=== PATIENT | female | born 1965 | race Caucasian/White ===

== ENCOUNTER 2017-04-25 09:40 | Outpatient (CLI) | payer BC ==
--- NOTE | 2017-04-25 13:26 | RAD ---
LEFT FOOT THREE VIEWS: HISTORY: Calcaneal pain. COMPARISON: None. FINDINGS: No fracture. No cortical irregularity. No periosteal reaction. Joint space is preserved. IMPRESSION: Unremarkable three views left foot. POS: [facility]
== END 2017-04-25 09:41 | disposition home or self-care (01) ==
LOC: SCSRAD 09:40
PROVIDERS: ATTEND Nurse Practitioner Family
DX: M79.672 Pain in left foot (principal)

== ENCOUNTER 2017-11-08 08:28 | Outpatient (CLI) | payer BC, OTHER ==
[2017-11-08] MEDS ORDERED: ISOVUE-370 76%-LOCM 1 ML ONE (11:00)
== END 2017-11-08 08:29 | disposition home or self-care (01) ==
LOC: BICCT 08:28
PROVIDERS: ATTEND Obstetrics & Gynecology Gynecologic Oncology
DX: C56.1 Malignant neoplasm of right ovary (principal)
CPT/HCPCS: 71046; 74177

== ENCOUNTER 2018-01-19 05:56 | Day surgery (SDC) | payer BC ==
[2018-01-18 08:41] VITALS: BMI 32.1
[2018-01-19] MEDS ORDERED: Fentanyl 100 MCG/2 ML VIAL ONE (06:46)
[2018-01-19] MEDS ORDERED: Ketorolac Tromethamine 30 MG/ML VIAL ONE ×2 (07:05→09:35)
[2018-01-19] MEDS ORDERED: CEFAZOLIN/Water 2 GM/20 ML SYRINGE ONE (07:05)
[2018-01-19 07:10] LABS: Anion Gap 14 mmol/L (10-20); BUN (Urea Nitrogen) 15 mg/dL (9.8-20.1); Band 6 % (5-11); Calc. Creatinine Clearance 121 mL/min (70-130); Calcium 9.5 mg/dL (7.8-10.44); Carbon Dioxide 24 mmol/L (22-29); Chloride 107 mmol/L (98-107); Eosinophils 2 % (0-10); Estimated GFR-MDRD Greater than 90; Glucose 101 mg/dL (70-105); Hemoglobin 13.3 g/dL (12.0-16.0); Lymphocytes 21 % (21-51); MDiff Complete? YES; Mean Corpuscular HGB CONC 35.2 g/dL (32.0-36.0); Mean Corpuscular Hemoglobin 31.1 pg (27.0-31.0); Mean Corpuscular Volume 88.3 fL (78.0-98.0); Mean Platelet Volume 7.3 fL (7.4-10.4); Monocytes 7 % (0-10); Neutrophil 61 % (42-75); Platelet Count 303 thou/uL (130-400); Potassium 3.9 mmol/L (3.5-5.1); RBC Distribution Width 11.8 % (11.5-14.5); RBC Morphology Normal; Reactive Lymphocytes 3 % (0-10); Red Blood Cell (RBC) Count 4.29 mill/uL (4.20-5.40); Sodium 141 mmol/L (136-145); White Blood Cell (WBC) Count 4.5 thou/uL (4.8-10.8)
[2018-01-19] MEDS ORDERED: Midazolam HCl 2 mg/2 ml Vial ONE (07:19)
[2018-01-19] MEDS ORDERED: Bupivacaine/Epinephrine 0.25% 30 ML VIAL ONE (07:42)
[2018-01-19] MEDS ORDERED: traMADol HCl 50 MG TAB ONE (09:36)
[2018-01-19] MEDS ORDERED: PROPOFOL 200 MG/20 ML VIAL ONE (14:33)
[2018-01-19] MEDS ORDERED: Lidocaine 1% PF 5 ML VIAL ONE (14:33)
[2018-01-19] MEDS ORDERED: Dexamethasone 20 MG/5 ML VIAL ONE (14:33)
[2018-01-19] MEDS ORDERED: diphenhydrAMINE 50 MG/ML VIAL ONE (14:33)
[2018-01-19] MEDS ORDERED: Ondansetron HCl/PF 4 MG/2 ML Vial ONE (14:33)
--- NOTE | 2018-01-20 09:53 | OP ---
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 OPERATION PERFORMED: Excision of a 7 cm right axillary mass. SURGEON: Berto Galeana M.D. ANESTHESIA: General with laryngeal mask airway. INDICATIONS: The patient is a 52-year-old white female. She had undergone prior right breast reduct ion. She has a large visible mass within the right axilla. This is distinctly different from the le ft axilla. I had been observing this for several years. Unfortunately, it has enlarged and become p rogressively symptomatic. She is taken to the operating room at this time for excision of this area. DESCRIPTION OF OPERATION: Informed consent was obtained. The patient was taken to the operating rain m where general endotracheal anesthesia obtained with the patient in supine position. The right axil la and breast were prepped with ChloraPrep and draped in sterile fashion. Local anesthetic was infil trated using 0.25% Marcaine with epinephrine. An elliptical incision was created directly over the m ass. This had been marked preoperatively. Dissection was carried through skin and subcutaneous tiss ue. The glandular tissue that comprised the mass was dissected circumferentially and removed intact in continuity with the overlying skin. This was passed off the field and submitted to specimen. Gre at care was taken to avoid dissection to deep within the axilla so as to avoid all lymphatics, lymph nodes, nerves and vessels. The area was irrigated and meticulous hemostasis obtained with electrocautery. Wound was then closed in layers using 3-0 Vicryl to approximate the deep layers and a running subcuticular suture of 4-0 M onocryl to approximate skin edges. Dermabond was then placed externally. There were no complication s. The patient tolerated the procedure well and was taken to recovery room in stable condition.
== END 2018-01-19 09:50 | disposition home or self-care (01) ==
LOC: SDC 05:56
PROVIDERS: ATTEND Specialist
PROC: 0JB60ZZ Excision of Chest Subcutaneous Tissue and Fascia, Open Approach (ICD-10-PCS; principal; 2018-01-19)
DX: Q83.8 Other congenital malformations of breast (principal); N60.21 Fibroadenosis of right breast; F32.9 Major depressive disorder, single episode, unspecified; F41.9 Anxiety disorder, unspecified; Z79.899 Other long term (current) drug therapy; Z88.0 Allergy status to penicillin
CPT/HCPCS: 36415; 80048; 85025; 88305; J0131; J1100; J1200; J1885; J2001; J2250; J2405; J2704; J3010

== ENCOUNTER 2018-05-18 10:45 | Outpatient (CLI) | payer BC | END 2018-05-18 10:46 | disposition home or self-care (01) | LOC: BICMAMMO 10:45 | PROVIDERS: ATTEND Student in an Organized Health Care Education/Training Program | DX: Z12.31 Encounter for screening mammogram for malignant neoplasm of breast (principal); Z80.3 Family history of malignant neoplasm of breast; Z85.41 Personal history of malignant neoplasm of cervix uteri | CPT/HCPCS: 77063; 77067 ==

== ENCOUNTER 2018-12-22 08:26 | Outpatient (CLI) | payer BC ==
--- NOTE | 2018-12-22 08:54 | RAD ---
CHEST 2 VIEWS: HISTORY: Malignant neoplasm of right ovary. COMPARISON: 11/08/2017. FINDINGS: Normal cardiac silhouette. The pulmonary vessels and hilum are normal. Costophrenic angles are carla r. No masses or consolidation. No pneumothorax or osseous abnormalities. IMPRESSION: No acute cardiopulmonary process. POS: [facility]
== END 2018-12-22 08:27 | disposition home or self-care (01) ==
LOC: BICRAD 08:26
PROVIDERS: ATTEND Obstetrics & Gynecology Gynecologic Oncology
DX: C56.1 Malignant neoplasm of right ovary (principal)
CPT/HCPCS: 71046

== ENCOUNTER 2019-12-28 08:47 | Outpatient (CLI) | payer BC ==
--- NOTE | 2019-12-28 09:12 | RAD ---
RADIOGRAPH CHEST 2 VIEWS: DATE: 12/28/2019 HISTORY: 54-year-old female with malignant neoplasm of right ovary. FINDINGS: The lungs are clear. The cardiomediastinal silhouette and hilar shadows appear normal. There is no pl eural effusion or pneumothorax. IMPRESSION: Negative
== END 2019-12-28 08:48 | disposition home or self-care (01) ==
LOC: BICRAD 08:47
PROVIDERS: ATTEND Obstetrics & Gynecology Gynecologic Oncology
DX: C56.1 Malignant neoplasm of right ovary (principal)
CPT/HCPCS: 71046

== ENCOUNTER 2020-01-14 07:30 | Outpatient (CLI) | payer BC ==
[2020-01-14] MEDS ORDERED: Iopamidol 370 76% 100 ML VIAL ONE (11:48)
--- NOTE | 2020-01-14 16:23 | CT ---
CT CHEST, ABDOMEN, AND PELVIS WITH IV CONTRAST: Technique: Oral contrast was given. Multiplanar reconstruction. Indications: History of ovarian cancer. Increased tumor markers. Post hysterectomy. Comparison: CT abdomen/pelvis 11-08-17. FINDINGS: CT CHEST: The lung esaclante are well aerated and appear clear. No evidence of infiltrate or effusion. No evidence of pulmonary nodule. Mediastinum unremarkable. No adenopathy. Axilla unremarkable. Osseous structure s unremarkable. IMPRESSION: Unremarkable CT chest. CT ABDOMEN/PELVIS: Liver, spleen, pancreas unremarkable. Stomach and duodenum unremarkable. Adrenal glands and kidneys unremarkable. Small bowel loops appear normal. Appendix is normal. Colon is unremarkable. Aorta normal caliber. No adenopathy. No free fluid. Images through the pelvis show distended urinary bladder which appears unremarkable. Evidence of hysterectomy. No free fluid or adenopathy in the pelv is. Osseous structures unremarkable. Degenerative disc and endplate changes at L5-S1. IMPRESSION: No acute findings. POS: [facility]
== END 2020-01-14 07:31 | disposition home or self-care (01) ==
LOC: BICCT 07:30
PROVIDERS: ATTEND Obstetrics & Gynecology Gynecologic Oncology
DX: C56.1 Malignant neoplasm of right ovary (principal)
CPT/HCPCS: 71260; 74177; Q9967